=== PATIENT | female | born 1970 | race Caucasian/White ===

== ENCOUNTER 2019-04-15 11:33 | Emergency (ER) | payer OTHER, SELFPAY ==
--- NOTE | ~2019-04-15 | XR_ITS ---
EXAMINATION: XR chest 2V 04/15/2019 12:44 INDICATION: Shortness of breath with wheezing and fever PROCEDURE: 2 view chest COMPARISON: No prior studies for comparison. FINDINGS: The lungs are clear. The cardiomediastinal silhouette is within normal limits. There are no pleural effusions. There is no pneumothorax suspected. There is dextroscoliosis of the thoracic spine. IMPRESSION: 1: NO ACUTE CARDIOPULMONARY DISEASE. Reviewed, dictated and finalized at location A. [employer]
[2019-04-15 11:44] VITALS: BP 150/67; PULSE 76; RESP 16; TEMP 37.6; O2SAT 98
--- NOTE | 2019-04-15 12:24 | ED.GENADULT ---
HPI - General Adult General Chief complaint: Upper Respiratory Infection Stated complaint: fever sore throat congestion Time Seen by Provider: 04/15/19 12:24 Source: patient and RN notes reviewed Mode of arrival: ambulatory Limitations: no limitations History of Present Illness HPI narrative: 48-year-old female presents with complaints of sinus pressure and congestion, wheezing, and dry cough for 3 days. Symptoms increased over the last 24 hours with tactile fever, body aches, sore throat, and ear pain. [place] severe cold and flu without relief. Constant dry cough. Rhinorrhea and nasal congestion. Sore throat bilateral. Hurts to swallow. No high fevers, drooling, neck or throat swelling. No itching to ear, drainage, or trauma. No chest pain or shortness of breath. No exacerbation factors. Denies nausea, vomiting, and abdominal pain. Tolerating liquids well. Erendira denies being , LMP 1 week ago. Some parts of this dictation were generated by voice recognition software and may contain typographical and/or grammatical inaccuracies. Related Data Allergies Allergy/AdvReac Type Severity Reaction Status Date / Time No Known Allergies Allergy Verified 04/15/19 12:09 Review of Systems Review of Systems: Narrative: CONSTITUTIONAL: Complains of tactile fever, fatigue. Denies chills, sweats. EYES: Denies visual changes, redness, discharge. ENT: Complains of rhinorrhea, congestion, sore throat, otalgia. CARDIOVASCULAR: Denies chest pain, palpitations, edema. RESPIRATORY: Denies dyspnea, wheezing. Complains of dry cough. GASTROINTESTINAL: Denies abdominal pain, nausea, vomiting, diarrhea. GENITOURINARY: Denies dysuria, hematuria, abnormal discharge. SKIN: Denies rash or itching. MUSCULOSKELETAL: Denies acute back pain, joint pain. Complains of myalgia. NEUROLOGIC: Denies numbness or focal weakness. PSYCHIATRIC: Denies anxiety or depression. All systems reviewed & are unremarkable except as noted in HPI and below. [facility] Past Medical History Medical History (Updated 04/16/19 @ 00:00 by Zonia Daemvinh) VSD (ventricular septal defect) Repaired Surgical History Surgical History (Updated 04/15/19 @ 13:03 by ELLY Loza) History of heart surgery VSD Family History Family History (Updated 04/15/19 @ 13:04 by ELLY Loza) Other No significant family history Social History Social History (Updated 04/15/19 @ 12:34 by ELLY Loza) Smoking status: Never smoker Second hand tobacco smoke exposure: No Alcohol intake: current Alcohol use details: Occasional Substance use: never Living arrangements: with family Occupation/Education: occupation Gender identity (if verbalized by the patient): Female Comments At time of signature, agree with nurse past medical, surgical, social, and family history. There is no relevant family history pertinent to the presenting complaint. Exam Narrative: Exam Narrative: GENERAL: This is a well-nourished, well-developed patient, in no apparent distress. Talks in full sentences and ambulates with steady gait without dyspnea. HEAD: normocephalic, atraumatic. EYES: PERRL. Sclera clear/white. Vision is grossly intact. EARS: External ears normal, auditory canals clear and without drainage, TMs normal without perforation. Hearing grossly intact. NOSE: External nose normal with no obvious nasal discharge, nares with moderate redness and enlarged turbinates, clear rhinorrhea. THROAT: Mucous membranes moist, posterior pharynx clear. Mild erythema, no exudate, tonsils normal. No drainage, no concern for Peritonsillar abscess. No drooling, trismus, or neck swelling. NECK: Neck supple, non-tender without lymphadenopathy, masses or thyromegaly. CARDIOVASCULAR: Regular rate and rhythm without murmurs, gallops, or rubs. RESPIRATORY: Faint expiratory wheeze to left upper chest, all other tinajero are clear to auscultation. Breath sound
== END 2019-04-15 13:00 | disposition home or self-care (01) ==
PROVIDERS: Emergency Provider Nurse Practitioner Family
DX: J40 Bronchitis, not specified as acute or chronic (principal); J00 Acute nasopharyngitis [common cold]; J01.90 Acute sinusitis, unspecified
CPT/HCPCS: 71046; 87081; 87804; 87880; 99203; G0463